=== PATIENT | female | born 1975 | race Caucasian/White ===

== ENCOUNTER → 2017-08-11 | Outpatient (CLI) | payer OTHER ==
[~2017-08-11] MED LIST: DOXYCYCLINE 10100 MG PO; FISH OIL 1,001000 M2; HYDROCODONE-AP1 EAC6 PO; NEURONTIN 300300 M1 PO; ULTRAM ER100 MG
== END ==
LOC: M.CRD 08-09 14:44 → M.ULTRA 07:12
DX: R10.84 Generalized abdominal pain (principal); R07.89 Other chest pain